=== PATIENT | male | born 1950 | race Caucasian/White ===

== ENCOUNTER 2016-06-23 10:46 | Emergency (ER) | payer MEDICARE | END 2016-06-23 14:36 | disposition home or self-care (01) | LOC: D.ER 10:46 | DX: M25.50 Pain in unspecified joint (principal); F43.10 Post-traumatic stress disorder, unspecified ==

== ENCOUNTER 2016-06-28 16:41 | Emergency (ER) | payer MEDICARE ==
[2016-06-28 17:35] LABS: BASOPHILS 0.2 % (0.0-2.0); EOSINOPHILS 3.7 % (0-7); HEMATOCRIT 45.9 % (42.0-54.0); HEMOGLOBIN 15.5 g/dL (13.5-17.5); LYMPHOCYTES 18.6 % (15-50); MCH 31.8 pg (26.0-34.0); MCHC 33.8 g/dL (31.0-37.0); MCV 94.1 fL (80.0-100.0); MEAN PLATELET VOLUME 10.6 fL (7.4-10.4); MONOCYTES 15.7 % (2-11); NEUTROPHILS 61.8 % (40-80); PLATELET COUNT 226 10x3/uL (130-400); RBC 4.88 10x6/uL (4.20-6.10); RDW 12.2 % (11.5-14.5); WBC 6.5 10x3/uL (4.8-10.8)
[2016-06-28 17:48] LABS: ALBUMIN 4.4 g/dL (3.4-5.0); ALKALINE PHOSPHATASE 70 U/L (46-116); ALT (SGPT) 24 U/L (10-68); BILIRUBIN - TOTAL 1.19 mg/dL (0.2-1.3); CALC OSMOLALITY 264 mosm/kg (275-300); CALCIUM 9.3 mg/dL (8.5-10.1); CHLORIDE - SERUM 95 mmol/L (98-107); CREATININE - SERUM 0.9 mg/dL (0.6-1.3); PROTEIN - SERUM 7.6 g/dL (6.4-8.2); SODIUM 133 mmol/L (136-145); UREA NITROGEN 14 mg/dL (7-18); eGFR NON AFRICAN AMERICAN > 90 mL/min (90-120)
[2016-06-28 17:50] LABS: GLUCOSE 69 mg/dL (74-106)
== END 2016-06-28 18:31 | disposition other institution (70) ==
LOC: D.ER 16:41
PROVIDERS: Emergency Medicine
DX: F20.0 Paranoid schizophrenia (principal); F43.10 Post-traumatic stress disorder, unspecified; F17.200 Nicotine dependence, unspecified, uncomplicated